=== PATIENT | female | born 1970 | race African-American/Black ===

== ENCOUNTER 2018-05-10 23:05 | Emergency (ER) | payer OTHER, SELFPAY ==
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
== END 2018-05-11 01:51 | disposition home or self-care (01) ==
LOC: ERS 23:05
DX: M25.511 Pain in right shoulder (principal); K21.9 Gastro-esophageal reflux disease without esophagitis; Z79.899 Other long term (current) drug therapy; V43.52XA Car driver injured in collision with other type car in traffic accident, initial encounter